=== PATIENT | female | born 1995 | race Caucasian/White ===

== ENCOUNTER 2022-06-03 10:48 | Outpatient (REF) | payer OTHER, SELFPAY ==
[2022-06-03 13:19] LABS: MANUAL DIFF FLAG NO
[2022-06-03 13:23] LABS: Basophils Percent Auto 0.6 % (0-2); Eosinophils Absolute Auto 0.2 X10*3/uL (0.0-0.4); Hematocrit 37.7 % (37.0-47.0); Hemoglobin 12.1 g/dl (12.0-16.0); Imm Gran Abs Auto 0.01 X10*3/uL (0.00-0.03); Imm Gran Pct Auto 0.2 % (0.0-0.4); Lymphocytes Absolute Auto 1.1 X10*3/uL (1.2-4.9); Lymphocytes Percent Auto 24.2 % (20-40); Mean Corpuscular HGB Conc 32.1 g/dl (31.0-35.0); Mean Corpuscular Hemoglobin 26.1 pg (27.0-33.0); Mean Corpuscular Volume 81.4 fL (80.0-98.0); Mean Platelet Volume 11.2 fL (9.4-12.3); Monocytes Absolute Auto 0.3 X10*3/uL (0.1-1.2); Monocytes Percent Auto 7.3 % (2-11); Neutrophils Absolute Auto 2.9 x10*3/uL (2.0-8.3); Neutrophils Percent Auto 62.7 % (45-73); Platelet Count 276 X10*3/uL (160-400); Red Blood Count 4.63 X10*6/uL (4.20-5.50); Red Cell Distribution Width 13.2 % (11.0-16.0); White Blood Count 4.6 X10*3/uL (4.8-10.8)
[2022-06-03 14:16] LABS: Creatinine Urine 20.73 mg/dL; Erythrocyte Sedimentation Rate 23 MM/HR (0-20); Total Protein Urine Random < 7 mg/dL (<12)
[2022-06-07 21:03] LABS: Anti DNA DS Antibody 4 IU/mL; SM/Ribonucleoprotein Ab <1.0 NEG AI (<1.0 NEG); Scleroderma 70 Antibody >8.0 POS AI (<1.0 NEG); Smith Protein <1.0 NEG AI (<1.0 NEG)
[2022-06-08 11:31] LABS: Complement C3 130 mg/dL (83-193)
== END 2022-06-03 10:49 | disposition home or self-care (01) ==
LOC: HO.10HDL 10:48
PROVIDERS: Visit Provider Internal Medicine Rheumatology
DX: I73.00 Raynaud's syndrome without gangrene (principal); M79.641 Pain in right hand; R76.8 Other specified abnormal immunological findings in serum
CPT/HCPCS: 36415; 84156; 85025; 85652; 86140; 86160; 86225; 86235; 99202

== ENCOUNTER 2022-07-08 12:59 | Outpatient (REF) | payer OTHER, SELFPAY ==
--- NOTE | 2022-07-08 13:39 | ECG_ITS ---
Test Reason : abn immune findings in serum Blood Pressure : / mmHG Vent. Rate : 104 BPM Atrial Rate : 104 BPM P-R Int : 172 ms QRS Dur : 090 ms QT Int : 360 ms P-R-T Axes : 069 058 063 degrees QTc Int : 473 ms Sinus tachycardia Otherwise normal ECG No previous ECGs available Referred By: Harpreet Radford Electronically Signed By:MACK BRADLEY
--- NOTE | 2022-07-08 14:58 | PFT_ITS ---
INDICATION: Scleroderma. SPIROMETRY: FEV1 to FVC 90% with an FEV1 of 2.98 L, which is 94% predicted and FVC of 3.31 L, which is 90% predicted. No significant response to bronchodilators noted. Maximum voluntary ventilation 108% predicted. LUNG VOLUMES: Total lung capacity 86% predicted. DIFFUSION CAPACITY: DLCO 95% predicted. Flow volume loop appears to be completely normal. INTERPRETATION: No obstructive nor restrictive ventilatory defects identified. No significant response to bronchodilators noted. Normal maximum voluntary ventilation. Lung volumes are low normal, but otherwise within normal limits and the patient does have a normal diffusion capacity. Clinical correlation warranted. MD NENITA Rey/TEZ / [id number]
== END 2022-07-08 13:00 | disposition home or self-care (01) ==
LOC: HO.RESP 12:59
PROVIDERS: PCP Internal Medicine Rheumatology; Visit Provider Internal Medicine Rheumatology
DX: R76.8 Other specified abnormal immunological findings in serum (principal); I73.00 Raynaud's syndrome without gangrene
CPT/HCPCS: 93005; 94060; 94727; 94729

== ENCOUNTER → 2022-09-30 09:56 | Outpatient (BNVA) | payer OTHER, SELFPAY | PROVIDERS: Visit Provider Internal Medicine Rheumatology | DX: M34.9 Systemic sclerosis, unspecified (principal); R76.8 Other specified abnormal immunological findings in serum; I73.00 Raynaud's syndrome without gangrene | CPT/HCPCS: 99212 ==

== ENCOUNTER 2023-04-18 12:55 | Outpatient (REF) | payer OTHER, SELFPAY | END 2023-04-18 12:56 | disposition home or self-care (01) | LOC: HO.LAB 12:55 | PROVIDERS: Visit Provider Internal Medicine Rheumatology | DX: R76.8 Other specified abnormal immunological findings in serum (principal); I73.00 Raynaud's syndrome without gangrene | CPT/HCPCS: 36415; 82565; 83520; 84156; 85025; 85652; 86140; 86235; 99212 ==